=== PATIENT | female | born 1970 | race Caucasian/White ===

== ENCOUNTER → 2016-10-09 | Outpatient (CLI) | payer OTHER ==
--- NOTE | 2016-10-09 21:08 | MR ---
EXAMINATION TYPE: MR lumbar spine wo/w con DATE OF EXAM: 10/09/2016 7:33 PM COMPARISON: NONE HISTORY: Lower back pain Contrast: 15 mL of MultiHance TECHNIQUE: T1 and T2 axial and sagittal, postcontrast T1 sagittal and axial images of the lumbar spi ne are submitted. FINDINGS: There is no abnormal signal seen within the visualized spinal cord or paraspinal soft tissu es. At T12-L1 there is no disc herniation or canal stenosis. No foraminal encroachment. At L1-2 there is no disc herniation or canal stenosis. No foraminal encroachment. No evidence of dege nerative disc disease. At L2-3 there is no disc herniation or canal stenosis. No foraminal encroachment. Mild hypertrophic c hange of the facets. At L3-4 there is no disc herniation or canal stenosis. No foraminal encroachment. Mild degenerative d isc disease and moderate facet arthropathy. At L4-5 there is mild degenerative disc disease and moderate facet arthropathy. No evidence of disc h erniation or canal stenosis. Mild bilateral foraminal encroachment. At L5-S1 there is right paracentral broad-based disc protrusion or small herniation with mild effacem ent of the thecal sac. No definite nerve root contact. Moderate facet arthropathy and [id number] e right-sided foraminal encroachment. IMPRESSION: 1. Broad-based right paracentral and lateral disc protrusion or small herniation L5-S1 with no nerve root contact. Mild to moderate right-sided foraminal encroachment. 2. Multilevel facet arthropathy and degenerative disc disease. 3. No abnormal signal or enhancement within the visualized spinal cord.
== END | disposition home or self-care (01) ==
LOC: RADMRIMAIN 17:19
PROVIDERS: ATTEND Psychiatry & Neurology Neurology
DX: M51.36 Other intervertebral disc degeneration, lumbar region (principal); M46.96 Unspecified inflammatory spondylopathy, lumbar region; Z87.898 Personal history of other specified conditions
CPT/HCPCS: 72158; A9577

== ENCOUNTER 2017-04-06 13:35 | Inpatient (IN) | payer OTHER ==
[2017-04-06] MEDS ORDERED: SODIUM CHLORIDE 0.9% 1,000 ML IV STA (15:45)
[2017-04-06] MEDS ORDERED: IPRATROPIUM-ALBUTEROL 3 ML NEB INHALATION STA ×2 (15:45→16:31)
[2017-04-06] MEDS ORDERED: methylPREDNISolone SOD SUCCI 125 MG/2 ML VIAL IV STA (15:45)
--- NOTE | 2017-04-06 15:57 | XR ---
EXAMINATION TYPE: XR chest 2V DATE OF EXAM: 04/06/2017 COMPARISON: December 04, 2015 HISTORY: Shortness of breath TECHNIQUE: Frontal and lateral views of the chest are obtained. FINDINGS: There is no focal air space opacity, pleural effusion, or pneumothorax seen. The cardiac silhouette size is within normal limits. The osseous structures are intact. IMPRESSION: No acute cardiopulmonary process.
--- NOTE | 2017-04-06 16:14 | ED ---
General Adult HPI <Jose Raul Hart - Last Filed: 04/06/17 17:20> - General Source: patient, RN notes reviewed Mode of arrival: ambulatory Limitations: no limitations <Janie Henry - Last Filed: 04/06/17 17:22> - General Chief complaint: Upper Respiratory Infection Stated complaint: SOB Time Seen by Provider: 04/06/17 15:31 - History of Present Illness Initial comments: 46 yo female presents to the ER with cc of shortness of breath. Patient has a history of asthma and bronchitis. Patient had shortness of breath past 3 weeks over the past few days worse and worse. Patient states she's used her breathing machine at home she has used steroids and antibiotics with no improvement. States she was concerned because she just becomes very the eye and he is short of breath so she thought that she should be seen. Patient denies any recent fever, chills, chest pain, back pain, abdominal pain, nausea vomiting, numbness or tingling, dysuria or hematuria, constipation or diarrhea, headaches or visual changes, or any other current symptoms. (Janie Henry) - Related Data Home Medications Medication Instructions Recorded Confirmed Albuterol Sulfate [Ventolin HFA] 2 puff INHALATION RT-Q6H PRN 12/20/15 04/06/17 ALPRAZolam [Xanax] 0.25 mg PO DAILY PRN 04/06/17 04/06/17 Albuterol Nebulized [Ventolin 2.5 mg INHALATION RT-Q6H PRN 04/06/17 04/06/17 Nebulized] Gabapentin [Neurontin] 300 mg PO TID 04/06/17 04/06/17 HYDROcodone/APAP 7.5-325MG [[place] 1 tab PO TID PRN 04/06/17 04/06/17 7.5-325] Allergies Allergy/AdvReac Type Severity Reaction Status Date / Time No Known Allergies Allergy Verified 04/06/17 15:28 Review of Systems ROS Other: All systems not noted in ROS Statement are negative. <Jose Raul Hart - Last Filed: 04/06/17 17:20> ROS Other: All systems not noted in ROS Statement are negative. <Janie Henry - Last Filed: 04/06/17 17:22> ROS Statement: Those systems with pertinent positive or pertinent negative responses have been documented in the HPI. Past Medical History Past Medical History: Asthma Additional Past Medical History / Comment(s): back pain, DDD, lt arm tumor History of Any Multi-Drug Resistant Organisms: None Reported Past Surgical History: Section Past Psychological History: No Psychological Hx Reported Smoking Status: Former smoker Past Alcohol Use History: None Reported Past Drug Use History: Marijuana <Janie Henry - Last Filed: 04/06/17 17:22> General Exam <Jose Raul Hart - Last Filed: 04/06/17 17:20> Limitations: no limitations <Janie Henry - Last Filed: 04/06/17 17:22> - General Exam Comments Initial Comments: General: The patient is awake and alert, in no distress, and does not appear acutely ill. Eye: Pupils are equal, round and reactive to light, extra-ocular movements are intact; there is normal conjunctiva bilaterally. No signs of icterus. Ears, nose, mouth and throat: There are moist mucous membranes and no oral lesions. Neck: The neck is supple, there is no tenderness. Cardiovascular: There is a regular rate and rhythm. No murmur, rub or gallop is appreciated. Respiratory: Lungs are clear to auscultation, respirations are non-labored, breath sounds are equal. Diffuse inspiratory and expiratory wheezes, no stridor , rales, or rhonchi. Gastrointestinal: Soft, non-distended, non-tender abdomen without masses or organomegaly noted. There is no rebound or guarding present. No CVA tenderness. Bowel sounds are unremarkable. Back: There is no tenderness to palpation in the midline. There is no obvious deformity. No rashes noted. Musculoskeletal: Normal ROM, no tenderness, There is no pedal edema. There is no calf tenderness or swelling. Sensation intact. Pulses equal bilaterally 2+. Neurological: CN II-XII intact, There are no obvious motor or sensory deficits. Coordination appears grossly intact. Speech is normal. Skin: Skin is warm and dry and no rashes or lesions are noted. Psychiatric: Cooperative, appropriate mood & affect, normal judgment. (Janie Henry) Medical Decision Making - Lab Data Result diagrams: 04/06/17 16:21 04/06/17 16:21 <Jose Raul Hart - Last Filed: 04/06/17 17:20> - Lab Data Result diagrams: 04/06/17 16:21 04/06/17 16:21 - Radiology Data Radiology results: report reviewed, image reviewed <Janie Hnery - Last Filed: 04/06/17 17:22> - Medical Decision Making Medical decision-making. The patient states that she was treated for 13 days of steroids and erythromycin which ended 3 days ago. Last night while at work she reports she could hardly breathe. She was wheezing. At home she has a flap dressed. Emergency room she received 2 updrafts back to back and IV steroids and still slight wheezing. Though she states she is feeling better. Chest x-ray is done reviewed radiologist does not show pneumonia. White count normal. We auscultation at this time finds the patient still with some coarse breath sounds. I discussed the case Dr. Smith on-call for Dr. House. Patient be admitted to Dr. House. Dr. Hart (Jose Raul Hart) 46-year-old female presents with asthma exacerbation. Patient states that she' s been on steroids antibiotics and breathing treatments at home and her symptoms do not seem to be improving. At this time the patient's symptoms continued not to be improving after breathing treatment still have tightness in the chest. This with the patient due to failed outpatient treatment. We will start her on steroids breathing treatment. Patient is in agreement with this plan all questions have been answered. (Janie Henry) - Lab Data Lab Results 04/06/17 04/06/17 Range/Units 16:21 16:21 WBC 6.0 (3.8-10.6) k/uL RBC 4.50 (3.80-5.40) m/uL Hgb 14.7 (11.4-16.0) gm/dL Hct 41.2 (34.0-46.0) % MCV 91.5 (80.0-100.0) fL MCH 32.8 (25.0-35.0) pg MCHC 35.8 (31.0-37.0) g/dL RDW 12.6 (11.5-15.5) % Plt Count 187 (150-450) k/uL Neutrophils % 64 % Lymphocytes % 25 % Monocytes % 5 % Eosinophils % 3 % Basophils % 1 % Neutrophils # 3.8 (1.3-7.7) k/uL Lymphocytes # 1.5 (1.0-4.8) k/uL Monocytes # 0.3 (0-1.0) k/uL Eosinophils # 0.2 (0-0.7) k/uL Basophils # 0.1 (0-0.2) k/uL Sodium 137 (137-145) mmol/L Potassium 4.4 (3.5-5.1) mmol/L Chloride 109 H (98-107) mmol/L Carbon Dioxide 23 (22-30) mmol/L Anion Gap 5 mmol/L BUN 11 (7-17) mg/dL Creatinine 0.90 (0.52-1.04) mg/dL Est GFR (MDRD) Af Amer >60 (>60 ml/min/1.73 sqM) Est GFR (MDRD) Non-Af >60 (>60 ml/min/1.73 sqM) Glucose 120 H (74-99) mg/dL Calcium 9.3 (8.4-10.2) mg/dL Total Bilirubin 0.4 (0.2-1.3) mg/dL AST 23 (14-36) U/L ALT 36 (9-52) U/L Alkaline Phosphatase 102 (38-126) U/L Total Protein 6.2 L (6.3-8.2) g/dL Albumin 3.8 (3.5-5.0) g/dL Disposition <Jose Raul Hart - Last Filed: 04/06/17 17:20> Time of Disposition: 17:22 Decision Date: 04/06/17 Decision Time: 17:16 <Janie Henry - Last Filed: 04/06/17 17:22> Clinical Impression: Asthma exacerbation, Failure of outpatient treatment Disposition: ADMITTED IP TO THIS [facility] Condition: Stable Referrals: Albert House MD [Primary Care Provider] - 1-2 days
[2017-04-06 16:28] LABS: Basophils # (A) 0.1 k/uL (0-0.2); Basophils % (A) 1 %; CH 31.6; CHCM 34.7; Eosinophils # (A) 0.2 k/uL (0-0.7); Eosinophils % (A) 3 %; HCT 41.2 % (34.0-46.0); HDW 2.56; HGB 14.7 gm/dL (11.4-16.0); Luc # (Auto) 0.14; Luc % (Auto) 2; Lymphocytes # (A) 1.5 k/uL (1.0-4.8); Lymphocytes % (A) 25 %; MCH 32.8 pg (25.0-35.0); MCHC 35.8 g/dL (31.0-37.0); MCV 91.5 fL (80.0-100.0); Mean Platelet Volume 8.1; Monocytes # (A) 0.3 k/uL (0-1.0); Monocytes % (A) 5 %; Neutrophils # (A) 3.8 k/uL (1.3-7.7); Neutrophils % (A) 64 %; RDW 12.6 % (11.5-15.5); WBC (Perox) 6.12
[2017-04-06 16:38] LABS: ALT 36 U/L (9-52); AST 23 U/L (14-36); Alkaline Phosphatase 102 U/L (38-126); Anion Gap 5 mmol/L; Blood Urea Nitrogen 11 mg/dL (7-17); Calcium 9.3 mg/dL (8.4-10.2); Carbon Dioxide 23 mmol/L (22-30); Chloride 109 mmol/L (98-107); Glucose 120 mg/dL (74-99); Non-African American GFR(MDRD) >60 (>60 ml/min/1.73 sqM); Potassium 4.4 mmol/L (3.5-5.1); Sodium 137 mmol/L (137-145); Total Bilirubin 0.4 mg/dL (0.2-1.3); Total Protein 6.2 g/dL (6.3-8.2)
[2017-04-06] MEDS ORDERED: ALPRAZolam 0.25 MG TAB PO PRN (17:22)
[2017-04-06] MEDS: IPRATROPIUM-ALBUTEROL 3 ML NEB INHALATION SCH (19:22)
[2017-04-06] MEDS: LEVOFLOXACIN 500 MG TAB PO SCH (19:26)
[2017-04-06] MEDS: SODIUM CHLORIDE 0.9% 1,000 ML IV SCH (19:26)
[2017-04-06 20:01] VITALS: BMI 26.1
[2017-04-06] MEDS: HYDROcodone/APAP 7.5-325MG 1 EACH TAB PO PRN (20:06)
[2017-04-06] MEDS: GABAPENTIN 300 MG CAP PO SCH (23:09)
[2017-04-06] MEDS: methylPREDNISolone SOD SUCCI 125 MG/2 ML VIAL IV SCH (23:09)
[2017-04-06] MEDS: MONTELUKAST 10 MG TAB PO SCH (23:09)
--- NOTE | 2017-04-07 05:18 | HP ---
HISTORY AND PHYSICAL CHIEF COMPLAINT: Shortness of breath. HISTORY OF PRESENT ILLNESS: This 46-year-old female presented to the emergency room with complaints of shortness of breath. She has been on oral steroids, antibiotic on outpatient by her primary doctor, Dr. House. The patient presents with symptoms are not improving. The patient has had no fever or chills. She has some cough, remains dry with no sputum production. She does have a history of bronchial asthma since childhood. She does have a history of allergies. The patient has quit smoking in August. However, she still is in an environment of smoke. 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 The patient smoked 1-1/2 packs for over 20 years. Alcohol occasional. The patient denies any other symptoms of chest pain, fever, or chills. PAST MEDICAL HISTORY: Significant for bronchial asthma and probable COPD. No history of any liver disease, kidney disease, ulcers, TB, hepatitis. No history of any rheumatic fever, myocardial infarction, CVA. No history of any hypertension or malignancy. PAST SURGICAL HISTORY: Only significant for C-sections. PERSONAL HISTORY: Ex-smoker. Alcohol social. Patient does do marijuana. The patient is single. Has a son living with her. FAMILY MEDICAL HISTORY: Father at the age of 18. He had black lung disease. Mother at the age of 32. She had smoke inhalation in a fire. No siblings. Patient has 2 sons, one son 24 history of asthma, allergies. Another son 14 in good health. MEDICATIONS: Medications at home include: 1. [place] 7.5/325. 2. Neurontin 300 t.i.d. 3. Ativan. 4. Updrafts. 5. Ventolin MDI. 6. Xanax 0.25 p.r.n. 7. Flovent. REVIEW OF SYSTEMS: NEURO: Does have some headaches. No dizziness. No double vision, blurry vision. No symptoms of TIA, syncope, seizures. PSYCH: Some anxiety. CARDIAC: No chest pain, angina, palpitation. RESPIRATORY: Shortness of breath, cough. No hemoptysis. No chest pain. GI: No nausea, vomiting, abdominal pain. Did have diarrhea until yesterday, none since. : No symptoms of dysuria, hematuria, urgency, frequency. Has not had any periods for about 4 years now. EXTREMITIES: Denies pain, edema. CONSTITUTIONAL: No fever, chills. HEMATOLOGICAL: No anemia or bleeding disorder. ENDOCRINE: No history of diabetes mellitus, hypothyroidism. SKIN: No rashes. ENT: Adequate hearing, smell, taste. Denies any sore throat. EYES: Adequate vision. PHYSICAL EXAMINATION: Pleasant young 46 at present not in significant distress. The patient's vital signs reveals temperature 98.3, pulse 93, respirations 16, blood pressure 143/70, pulse ox 93% on room air. HEENT: Normocephalic. Neck is supple. Oral cavity is moist. Neck reveals no JVD, carotid bruit, or thyromegaly. CHEST EXAMINATION: Normal percussion note, symmetrical, bilateral expansion. Lung hinojosa reveal generalized decreased air flow. Bilateral rhonchi and some expiratory wheezing bilateral. CARDIAC: Normal S1, S2 with no gallops, murmurs. ABDOMEN: Soft. No palpable masses. Bowel sounds normal. No organomegaly. No abdominal bruits. Bowel sounds active. Extremities reveal no edema. Good pulses both upper and lower extremities. NEUROLOGICALLY: Awake, alert, oriented x3 with well coordinated movements. LABORATORY ASSESSMENT: CBC is normal. Electrolytes are normal. BUN and creatinine normal. Glucose 120 random. Liver functions normal. Albumin 3.8. Chest x-ray reveals. no acute cardiopulmonary process. ASSESSMENT: 1. Acute bronchial asthma with exacerbation. 2. History of chronic back pain. PLAN: The patient at present is admitted to the hospital for IV steroids and oxygen updrafts, hydration. Patient probably will be able to go home within 24 to 48 hours. Patient's condition discussed with the patient. Prognosis is guarded. The patient will be seen by Dr. Albert House upon his return tomorrow. Patient's condition discussed with the patient. Plan of care discussed with the patient. Answered all questions. MMODL / IJN: [id number] /
[2017-04-07] MEDS: SODIUM CHLORIDE 0.9% 1,000 ML IV SCH ×3 (05:46→18:20)
[2017-04-07] MEDS: methylPREDNISolone SOD SUCCI 125 MG/2 ML VIAL IV SCH ×4 (05:46→23:42)
[2017-04-07] MEDS: HYDROcodone/APAP 7.5-325MG 1 EACH TAB PO PRN ×3 (05:47→22:41)
[2017-04-07] MEDS: IPRATROPIUM-ALBUTEROL 3 ML NEB INHALATION SCH ×4 (07:24→19:55)
[2017-04-07] MEDS: GABAPENTIN 300 MG CAP PO SCH ×3 (08:30→21:41)
[2017-04-07] MEDS ORDERED: ALBUTEROL NEBULIZED 2.5 MG/3 ML INHALATION PRN (10:05)
[2017-04-07] MEDS: ALPRAZolam 0.25 MG TAB PO PRN ×2 (15:06→22:41)
--- NOTE | 2017-04-07 15:34 | PN ---
PROGRESS NOTE DATE OF SERVICE: 04/07/2017 This is a 46-year-old white female who is known to have chronic obstructive pulmonary disease and she used to be heavy smoker and she was having severe cough, wheezing, and shortness of breath and was started on oral antibiotics as an outpatient and after she was started on prednisone, but she had been getting more and more dyspneic and she also had some cough and she was brought to the emergency room. In the ER, she was found to be in acute respiratory distress with a severe cough, and severe wheezing and the patient was admitted to the hospital for further evaluation and treatment. Patient was started on IV Solu-Medrol, IV antibiotics, and updraft treatments and the patient currently is getting slightly better, but still extremely wheezy and short of breath. She has also chronic low back pain and she is currently on pain medications. Her vital signs are otherwise stable. Otherwise she is very dyspneic and wheezy and she is alert and oriented. Will continue current medications and; however, will also get a consultation from briquette operator. Dr. Edgar Ruiz has been consulted. MMODL / IJN: [id number] /
[2017-04-07] MEDS: HEPARIN SODIUM,PORCINE 5,000 UNIT/ML 1 ML VIAL SQ SCH ×2 (16:57→23:43)
[2017-04-07 17:58] LABS: Glucose,Whole Blood 148 mg/dL (75-99)
[2017-04-07] MEDS: LEVOFLOXACIN 500 MG TAB PO SCH (18:18)
[2017-04-07] MEDS: BUDESONIDE 0.5 MG/2 ML NEBU INHALATION SCH (19:53)
[2017-04-07 20:15] LABS: Glucose,Whole Blood 206 mg/dL (75-99)
--- NOTE | 2017-04-07 20:46 | CONS ---
CONSULTATION Elyse Murrieta is a 46-year-old female, who presented to the ED at [facility] with increasing shortness of breath for about 3-4 weeks. She had been treated with steroids as an outpatient and did not improve completely and came into the ER for further evaluation. She has a known history of asthma for several years and has been exposed to secondhand smoke for the last 3 months. She also moved into a dwelling where there is a dog and she suspects that she might be allergic to the dog. The patient's insurance company also stopped coverage of her inhaled steroid in the form of Flovent and she has been without inhaled steroid. PAST MEDICAL HISTORY: Is positive for degenerative disc disease. Back pain. Left arm tumor, history of asthma, history of anxiety. FAMILY HISTORY: Negative for COPD or asthma. SOCIAL HISTORY: Patient used to smoke cigarettes, quit smoking about 6 months ago. She is exposed to secondhand smoke. She does not drink alcohol excessively. She uses marijuana occasionally. She is exposed to a dog that is new as she moved into a new dwelling in December of 2016. MEDICATIONS: Prior to admission were: 1. Hydrocodone with acetaminophen. 2. Neurontin. 3. Ventolin. 4. Nebulized Ventolin metered dose inhaler. 5. Xanax. REVIEW OF SYSTEMS: Is noncontributory. PHYSICAL EXAMINATION: Respiratory rate is 18, pulse rate of 94, afebrile. Blood pressure 126/72, O2 saturation on room is 93%. HEENT: Unremarkable. Chest reveals decreased breath sounds with prolonged expiration with expiratory wheeze. Cardiovascular system reveals an S1, S2. No S3, no S4. No murmurs. ABDOMEN: Soft. There is no pedal edema. X-RAY: Chest x-ray shows no acute cardiopulmonary process. IMPRESSION: Severe asthma with acute exacerbation. At this point in time from a pulmonary standpoint, would keep her on IV and aerosolized steroids, receptor antagonists. Check peak flows. Check an allergy profile. The patient is on Levaquin and we will continue for atypical organisms for the likelihood of an infections. Keep on GI and DVT prophylaxis. Depending on how she does, we should make further changes with her care. She was counseled regarding this condition and this approach and has a fair understanding of recommendations. MMODL / IJN: [id number] /
[2017-04-07] MEDS: MONTELUKAST 10 MG TAB PO SCH (21:41)
[2017-04-08] MEDS: methylPREDNISolone SOD SUCCI 125 MG/2 ML VIAL IV SCH (05:40)
[2017-04-08] MEDS: HYDROcodone/APAP 7.5-325MG 1 EACH TAB PO PRN ×2 (06:37→15:39)
[2017-04-08] MEDS: ALPRAZolam 0.25 MG TAB PO PRN ×2 (06:37→15:39)
[2017-04-08 07:10] LABS: Glucose,Whole Blood 168 mg/dL (75-99)
[2017-04-08] MEDS: PANTOPRAZOLE 40 MG TABLET PO SCH (07:45)
[2017-04-08] MEDS: HEPARIN SODIUM,PORCINE 5,000 UNIT/ML 1 ML VIAL SQ SCH ×2 (07:45→15:40)
[2017-04-08] MEDS: GABAPENTIN 300 MG CAP PO SCH ×3 (07:46→22:03)
[2017-04-08] MEDS: BUDESONIDE 0.5 MG/2 ML NEBU INHALATION SCH ×2 (08:32→19:26)
[2017-04-08] MEDS: IPRATROPIUM-ALBUTEROL 3 ML NEB INHALATION SCH ×4 (08:32→19:26)
[2017-04-08 09:37] LABS: Hemoglobin A1C 5.6 % (4.2-6.1)
--- NOTE | 2017-04-08 09:54 | PN ---
PROGRESS NOTE DATE OF SERVICE: 04/08/2017 She has been hemodynamically stable. She is less short of breath and is feeling better overall. PHYSICAL EXAMINATION: Her vitals are stable. She is afebrile. Her chest reveals expiratory wheeze on forced expiration. Cardiovascular system reveals an S1, S2. Abdomen is soft. There is no pedal edema. IMPRESSION: Severe asthma with acute exacerbation. Start to check peak flows. Once she gets the peak flow meter, switch her to oral steroids, increase her activity level depending on continue GI and DVT prophylaxis. Continue leukin receptor antagonist. Depending on how she does, we shall make further changes to her care. MMODL / IJN: [id number] /
[2017-04-08] MEDS: predniSONE 20 MG TAB PO SCH (11:23)
[2017-04-08 11:38] LABS: Glucose,Whole Blood 145 mg/dL (75-99)
--- NOTE | 2017-04-08 13:51 | PN ---
PROGRESS NOTE DATE OF SERVICE: 04/08/2017 This 46-year-old white female who is known to have COPD and asthma and she was admitted this time to the hospital with severe exacerbation of her asthma and also acute exacerbation of COPD. She was started on IV antibiotics and IV Solu-Medrol and updraft treatments and patient was also seen by the Dr. Edgar Ruiz in consultation. The patient is feeling slightly better today and Dr. Edgar Ruiz has switched her to oral prednisone and the patient continues to have the updraft treatments and also she is on Levaquin. Her vital signs are otherwise stable. Oral intake is adequate. Heart is in sinus rhythm. Lungs still reveal some bilateral scattered rhonchi and expiratory wheeze. We will continue current medications and if she continues to improve, she may be possibly discharged home tomorrow. The diagnosis and prognosis and therapeutic plans were discussed in detail with the patient today and also she has been advised to completely stop smoking. MMODL / IJN: [id number] /
[2017-04-08] MEDS: SODIUM CHLORIDE 0.9% 1,000 ML IV SCH ×2 (15:11→22:04)
[2017-04-08 17:09] LABS: Glucose,Whole Blood 136 mg/dL (75-99)
[2017-04-08] MEDS: LEVOFLOXACIN 500 MG TAB PO SCH (17:12)
[2017-04-08 20:34] LABS: Glucose,Whole Blood 174 mg/dL (75-99)
[2017-04-08] MEDS ORDERED: ALPRAZolam 0.5 MG TAB PO STA (21:49)
[2017-04-08] MEDS: MONTELUKAST 10 MG TAB PO SCH (22:03)
[2017-04-09] MEDS: HYDROcodone/APAP 7.5-325MG 1 EACH TAB PO PRN ×4 (00:18→23:20)
[2017-04-09] MEDS: HEPARIN SODIUM,PORCINE 5,000 UNIT/ML 1 ML VIAL SQ SCH ×4 (00:21→23:20)
[2017-04-09] MEDS: SODIUM CHLORIDE 0.9% 1,000 ML IV SCH (06:06)
[2017-04-09 07:38] LABS: Glucose,Whole Blood 78 mg/dL (75-99)
[2017-04-09] MEDS: IPRATROPIUM-ALBUTEROL 3 ML NEB INHALATION SCH ×4 (08:16→20:20)
[2017-04-09] MEDS: BUDESONIDE 0.5 MG/2 ML NEBU INHALATION SCH ×2 (08:16→20:20)
[2017-04-09] MEDS: GABAPENTIN 300 MG CAP PO SCH ×3 (09:18→21:39)
[2017-04-09] MEDS: PANTOPRAZOLE 40 MG TABLET PO SCH (09:18)
[2017-04-09] MEDS: predniSONE 20 MG TAB PO SCH (09:19)
[2017-04-09] MEDS: ALPRAZolam 0.25 MG TAB PO PRN ×3 (09:20→23:20)
[2017-04-09 11:46] LABS: Glucose,Whole Blood 125 mg/dL (75-99)
[2017-04-09] MEDS ORDERED: methylPREDNISolone SOD SUCCI 125 MG/2 ML VIAL IV SCH (12:45)
[2017-04-09 15:31] LABS: Alternaria alternata IgE <0.35 kU/L (<0.35); Asperg. fumagatus IgE <0.35 kU/L (<0.35); Asperg. fumagatus IgE Class CLASS 0; Birch(Com.Silvr) IgE Class CLASS 0; Cat Epith & Dander IgE <0.35 kU/L (<0.35); Cat Epith & Dander IgE Class CLASS 0; Clad herbarum IgE <0.35 kU/L (<0.35); Clad herbarum IgE Class CLASS 0; Common Ragweed IgE Class CLASS 0; Dermato. Pteronyssinus Class CLASS 0; Dermato. Pteronyssinus IgE <0.35 kU/L (<0.35); Dermato. farinae IgE <0.35 kU/L (<0.35); Dermato. farinae IgE Class CLASS 0; IgE (Allergen) 27.3 IU/mL (<114.0); Maple (Box Elder) IgE <0.35 kU/L (<0.35); Maple (Box Elder) IgE Class CLASS 0; Mountain Cedar IgE <0.35 kU/L (<0.35); Mountain Cedar IgE Class CLASS 0; Mouse Urine IgE Class CLASS 0; Mouse Urine Proteins,IgE <0.35 kU/L (<0.35); Mulberry IgE Class CLASS 0; Nettle IgE <0.35 kU/L (<0.35); Nettle IgE Class CLASS 0; Oak IgE <0.35 kU/L (<0.35); Penicillium notatum IgE Class CLASS 0; Rough Marshelder IgE <0.35 kU/L (<0.35); Rough Marshelder IgE Class CLASS 0; Timothy Grass IgE <0.35 kU/L (<0.35); Timothy Grass IgE Class CLASS 0; White Ash IgE Class CLASS 0
[2017-04-09 17:26] LABS: Glucose,Whole Blood 253 mg/dL (75-99)
--- NOTE | 2017-04-09 17:32 | PN ---
PROGRESS NOTE DATE OF SERVICE: 04/09/2017 This 46-year-old white female was known to have chronic obstructive pulmonary disease. She was admitted to the hospital with acute exacerbation of the COPD and acute bronchitis and severe asthma. The patient was started on IV antibiotics, updraft treatments and IV Solu-Medrol. The patient was seen by Dr. Kaden Ruiz in consultation. Patient's breathing difficulty improved. The IV Solu-Medrol was discontinued yesterday and she was placed on prednisone. But today patient is extremely short of breath and wheezy with wheezing and anxiety. We will place her back on IV Solu-Medrol and continue the IV antibiotics. Overall prognosis is guarded. Dr. Kaden Ruiz is also following the patient. The diagnosis, prognosis and therapeutic plans were discussed in detail with the patient today. JHONNYL / SEBASTIANN: [id number] /
--- NOTE | 2017-04-09 18:20 | PN ---
PROGRESS NOTE DATE OF SERVICE: 04/09/2017 HISTORY OF PRESENT ILLNESS: Patient is a 46-year-old female who came in with problems with increased difficulty with breathing that had been going on for quite some time. She had been treated with steroids on an outpatient basis. She had no improvement. She does have exposure to secondhand smoke and had been having some problems where she lives and works; she has moved at least 2 or 3 times due to problems with mold and animal dander. She is seen. She still has considerable wheezing and dry cough. She does admit that she has been smoking now 1 pack of cigarettes daily, and nicotine patch will be added. She states that she did have considerable problems last night with anxiety, which could possibly be related to not smoking. It also could be related to her steroids. She denies any nausea or vomiting. She denies any chest pain at this time. She was admitted with severe asthma with acute exacerbation. PHYSICAL EXAMINATION: Vital signs show temperature of 98.3, heart rate 83, respiratory rate 16, blood pressure 122/76, oxygen saturation on room air 94%. Accu-Chek today was 125. GENERAL: She is a 46-year-old female. Appears comfortable at this time. She does have Xanax as needed. HEENT: Head is atraumatic, normocephalic. Pupils are equal, reactive. Mucous membranes are moist. NECK: Supple. Trachea is midline. Lung sounds with scattered wheezes heard throughout. CARDIOVASCULAR: S1 and S2 are heard; regular. ABDOMEN: Soft. Bowel sounds are heard. EXTREMITIES: No edema. NEUROLOGIC: She is awake, alert. IMPRESSION: 1. Acute exacerbation of severe asthma. 2. Nicotine dependence. 3. History of chronic back pain. PLAN: We will continue patient with her present medications. Continue with steroids as ordered. Will order a nicotine patch. She has Xanax as needed. Continue with GI and DVT prophylaxis. Continue with pulmonary hygiene. We will continue to follow patient with you and make further changes as necessary. MMODL / IJN: [id number] /
[2017-04-09] MEDS: LEVOFLOXACIN 500 MG TAB PO SCH (19:13)
[2017-04-09] MEDS: methylPREDNISolone SOD SUCCI 125 MG/2 ML VIAL IV SCH (19:53)
[2017-04-09] MEDS: MONTELUKAST 10 MG TAB PO SCH (21:39)
[2017-04-09] MEDS: NICOTINE 21MG/24HR PATCH TRANSDERM SCH (21:40)
[2017-04-09] MEDS: PROMETHAZINE 6.25MG/5ML 147.5 MG/118 ML BOTTLE PO PRN (21:40)
[2017-04-10 00:42] LABS: Glucose,Whole Blood 122 mg/dL (75-99)
[2017-04-10] MEDS: methylPREDNISolone SOD SUCCI 125 MG/2 ML VIAL IV SCH ×3 (00:43→14:08)
[2017-04-10 07:39] LABS: Glucose,Whole Blood 139 mg/dL (75-99)
[2017-04-10 07:55] VITALS: BP 142/95; RESP 18; TEMP 97.3
[2017-04-10] MEDS: PANTOPRAZOLE 40 MG TABLET PO SCH (08:09)
[2017-04-10] MEDS: NICOTINE 21MG/24HR PATCH TRANSDERM SCH (08:09)
[2017-04-10] MEDS: ALPRAZolam 0.25 MG TAB PO PRN (08:09)
[2017-04-10] MEDS: HEPARIN SODIUM,PORCINE 5,000 UNIT/ML 1 ML VIAL SQ SCH (08:09)
[2017-04-10] MEDS: GABAPENTIN 300 MG CAP PO SCH (08:09)
[2017-04-10] MEDS: HYDROcodone/APAP 7.5-325MG 1 EACH TAB PO PRN (08:09)
[2017-04-10] MEDS: PROMETHAZINE 6.25MG/5ML 147.5 MG/118 ML BOTTLE PO PRN ×2 (08:13→14:10)
[2017-04-10] MEDS: BUDESONIDE 0.5 MG/2 ML NEBU INHALATION SCH (08:45)
[2017-04-10] MEDS: IPRATROPIUM-ALBUTEROL 3 ML NEB INHALATION SCH ×2 (08:45→12:22)
[2017-04-10 11:10] LABS: Glucose,Whole Blood 168 mg/dL (75-99)
[2017-04-10 12:32] VITALS: PULSE 94
[2017-04-10] MEDS ORDERED: predniSONE 20 MG TAB PO SCH (14:15)
--- NOTE | 2017-04-10 17:18 | PN ---
PROGRESS NOTE DATE OF SERVICE: 04/10/2017 The patient is a 46-year-old female who follows with Dr. House. She was admitted with an acute exacerbation of asthma. She is seen sitting up in bed, talking with a visitor. The patient is quite anxious about being discharged home. 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 Patient is hemodynamically stable, afebrile, feeling better with improved shortness of breath. The patient is in no acute distress. PHYSICAL EXAMINATION: VITAL SIGNS: Temperature is 97.3, heart rate 70, respiratory rate 18, blood pressure 142/95, oxygen saturation 95% on room air. HEENT: Normocephalic, atraumatic. Neck is supple. Trachea is midline. LUNGS: Fair air entry with end-expiratory wheeze. HEART: S1 and S2 are heard. Not tachycardic. Abdomen is soft. Bowel sounds are heard. EXTREMITIES: No edema. NEUROLOGIC: Patient is awake and alert. LABS/IMAGING: No new labs to review. No new imaging to review. IMPRESSION: 1. Acute exacerbation of severe asthma. 2. Nicotine dependence. 3. History of chronic back pain. PLAN: Continue current medications, which have been reviewed, with bronchodilators and aerosolized steroids. Will give patient one dose of prednisone 60 mg now and from a pulmonary standpoint, patient could discharge home on oral prednisone, bronchodilators and aerosolized steroids. She should follow up in the pulmonary office for further workup and more weaning instructions on Friday or Friday of next week. All of this has been reviewed with the patient, with understanding verbalized. Prescriptions were provided for a nebulizer and prednisone, DuoNeb and Pulmicort. MMODL / IJN: [id number] /
--- NOTE | 2017-04-11 12:34 | DS ---
DISCHARGE SUMMARY DATE OF ADMISSION: 04/06/2017 DATE OF DISCHARGE: 04/10/2017 DISCHARGE DIAGNOSES: 1. Chronic obstructive pulmonary disease with acute exacerbation. 2. Acute on chronic asthma. 3. Acute bronchitis. 4. Chronic low back pain. 5. Degenerative arthritis, multiple joints. 6. Nicotine dependence. This is a 46-year-old white female who has a longstanding history of COPD and chronic asthma and she was brought to the emergency room because of increasing shortness of breath and difficulty in breathing and with severe cough. The patient was evaluated in the emergency room and she was admitted to the hospital for further evaluation and treatment. For detail of the physical examination at the time of admission, please refer to the history and physical. HOSPITAL COURSE: The patient was admitted to the hospital and was started on IV antibiotics, updraft treatments and IV Solu-Medrol and she was also given Phenergan cough syrup to control the cough. The patient was seen by Dr. Edgar Ruiz in consultation and he followed the patient while she was in the hospital and with the IV Solu-Medrol and updraft treatments, the patient's symptoms improved. The patient was then discharged home on 04/10/2017 and she was advised to continue on home on the above treatment. She was given a prescription for Pulmicort and also DuoNeb inhalation therapy and Phenergan cough syrup 10 mL q.6 hours p.r.n., prednisone tapering dose. She will also continue on with Xanax 0.25 mg p.o. p.r.n. and also she was given nicotine patch for quit smoking completely. She will be seen in my office for followup in a week's time. MMODL / IJN: [id number] /
[2017-04-14 00:09] LABS: Alternaria Alternata IgG < 2.0 mcg/mL (< 13.6); Cladosporium herbarium IgG 20.8 mcg/mL (< 14.7); Phoma ssp. IgG < 2.0 mcg/mL (< 6.6); Saccaharomospora viridis Not detected (Not detected); Saccaharopoly. rectivirgula Not detected (Not detected)
== END 2017-04-10 14:55 | disposition home or self-care (01) | DRG 202 ==
LOC: EC 13:35 → 5MS5E 17:21
PROVIDERS: ADMIT Internal Medicine; ATTEND Internal Medicine
DX: J45.901 Unspecified asthma with (acute) exacerbation (principal); J44.0 Chronic obstructive pulmonary disease with (acute) lower respiratory infection; J44.1 Chronic obstructive pulmonary disease with (acute) exacerbation; J20.9 Acute bronchitis, unspecified; M19.91 Primary osteoarthritis, unspecified site; F12.90 Cannabis use, unspecified, uncomplicated; G89.29 Other chronic pain; M54.5 Low back pain; F41.9 Anxiety disorder, unspecified; Z79.899 Other long term (current) drug therapy; Z77.22 Contact with and (suspected) exposure to environmental tobacco smoke (acute) (chronic); Z87.891 Personal history of nicotine dependence; Z82.5 Family history of asthma and other chronic lower respiratory diseases
CPT/HCPCS: 36415; 71020; 80053; 82103; 82104; 82785; 83036; 85025; 86001; 86003; 86606; 86609; 87040; 94640; 94760; 96361; 96374; 99284

== ENCOUNTER 2017-12-11 11:29 | Emergency (ER) | payer OTHER ==
[2017-12-11 11:39] VITALS: TEMP 97.8
[2017-12-11] MEDS ORDERED: methylPREDNISolone SOD SUCCI 125 MG/2 ML VIAL IV STA (11:48)
[2017-12-11] MEDS ORDERED: IPRATROPIUM-ALBUTEROL 3 ML NEB INHALATION STA (11:48)
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
[2017-12-11 12:22] LABS: Basophils % (A) 0 %; Eosinophils # (A) 0.1 k/uL (0-0.7); Eosinophils % (A) 1 %; HCT 46.9 % (34.0-46.0); HGB 15.7 gm/dL (11.4-16.0); Lymphocytes % (A) 8 %; MCH 30.4 pg (25.0-35.0); MCHC 33.4 g/dL (31.0-37.0); MCV 91.1 fL (80.0-100.0); Mean Platelet Volume 7.7; Monocytes # (A) 0.3 k/uL (0-1.0); Monocytes % (A) 3 %; Neutrophils % (A) 88 %; Platelet Count 226 k/uL (150-450); RBC 5.15 m/uL (3.80-5.40); RDW 12.5 % (11.5-15.5); WBC 12.5 k/uL (3.8-10.6)
--- NOTE | 2017-12-11 12:22 | XR ---
EXAMINATION TYPE: XR chest 2V DATE OF EXAM: 12/11/2017 COMPARISON: Prior chest x-ray 06/22/2017 12/20/2015 HISTORY: Difficulty breathing TECHNIQUE: Frontal and lateral views of the chest are obtained on 3 images. FINDINGS: There is no focal air space opacity, pleural effusion, or pneumothorax seen. The cardiac silhouette size is within normal limits. The osseous structures are stable, chondroid lesion [place] in the proximal left humerus as on prior exam. Prominent lung volume may be indicative of underly ing COPD. IMPRESSION: No acute cardiopulmonary process.
[2017-12-11 12:37] LABS: Albumin 4.4 g/dL (3.5-5.0); Calcium 9.8 mg/dL (8.4-10.2); Magnesium 1.7 mg/dL (1.6-2.3); Potassium 3.5 mmol/L (3.5-5.1); Total Bilirubin 0.3 mg/dL (0.2-1.3); Total Protein 6.6 g/dL (6.3-8.2)
[2017-12-11] MEDS ORDERED: SODIUM CHLORIDE 0.9% 1,000 ML IV ONE (12:42)
[2017-12-11 13:15] VITALS: BP 133/63; PULSE 85; RESP 16
== END 2017-12-11 13:38 | disposition home or self-care (01) ==
LOC: EC 11:29
DX: J44.1 Chronic obstructive pulmonary disease with (acute) exacerbation (principal); J06.9 Acute upper respiratory infection, unspecified; E87.2 Acidosis; F17.200 Nicotine dependence, unspecified, uncomplicated; Z79.52 Long term (current) use of systemic steroids; Z83.6 Family history of other diseases of the respiratory system
CPT/HCPCS: 36415; 94640; 80053; 83605; 83735; 85025; 87040; 71046; 99285; 96374; 96361; J2930

== ENCOUNTER → 2018-06-05 | Outpatient (CLI) | payer OTHER ==
--- NOTE | 2018-06-05 10:07 | XR ---
EXAMINATION TYPE: XR humerus LT DATE OF EXAM: 06/05/2018 CLINICAL HISTORY: Neoplasm of bone. TECHNIQUE: Two views of the left humerus are obtained. COMPARISON: Left shoulder x-ray December 20, 2015 FINDINGS: There is no acute fracture or dislocation seen in the left humerus. The proximal humerus redemonstrates ring and arc calcification centered proximal humeral metaphysis with proximal diaphyse al extension not significantly changed in appearance from prior study. No suspicious cortical destruc tion or adjacent soft tissue mass is seen. Visualized portion of shoulder and elbow joints is within normal limits. The overlying soft tissue appears within normal limits. IMPRESSION: Stable appearing nonspecific left proximal humeral chondroid lesion.
== END | disposition home or self-care (01) ==
LOC: RADXRMAIN 09:40
PROVIDERS: ATTEND Internal Medicine Hematology & Oncology
DX: D48.0 Neoplasm of uncertain behavior of bone and articular cartilage (principal); J45.998 Other asthma

== ENCOUNTER 2018-09-27 08:38 | Emergency (ER) | payer OTHER ==
[2018-09-27] MEDS ORDERED: KETOROLAC 30 MG/ML 1 ML VIAL IVP STA ×2 (09:00→11:19)
[2018-09-27] MEDS ORDERED: ONDANSETRON 4 MG/2 ML VIAL IVP STA (09:00)
[2018-09-27] MEDS ORDERED: SODIUM CHLORIDE 0.9% 500 ML 500 ML IV STA (09:00)
[2018-09-27] MEDS ORDERED: SODIUM CHLORIDE 0.9% 1,000 ML IV STA (09:00)
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
[2018-09-27 09:39] LABS: Basophils # (A) 0.1 k/uL (0-0.2); Basophils % (A) 0 %; Eosinophils # (A) 0.1 k/uL (0-0.7); Eosinophils % (A) 0 %; HCT 40.4 % (34.0-46.0); HGB 13.6 gm/dL (11.4-16.0); Lymphocytes # (A) 1.5 k/uL (1.0-4.8); Lymphocytes % (A) 8 %; MCH 30.5 pg (25.0-35.0); MCHC 33.5 g/dL (31.0-37.0); Monocytes % (A) 5 %; Neutrophils # (A) 16.3 k/uL (1.3-7.7); Neutrophils % (A) 85 %; Platelet Count 208 k/uL (150-450); RBC 4.44 m/uL (3.80-5.40); RDW 12.2 % (11.5-15.5); WBC 19.1 k/uL (3.8-10.6)
[2018-09-27 09:41] LABS: ALT 23 U/L (9-52); AST 11 U/L (14-36); Albumin 3.7 g/dL (3.5-5.0); Alkaline Phosphatase 93 U/L (38-126); Amylase 33 U/L (30-110); Anion Gap 8 mmol/L; Blood Urea Nitrogen 9 mg/dL (7-17); Calcium 9.3 mg/dL (8.4-10.2); Carbon Dioxide 24 mmol/L (22-30); Chloride 104 mmol/L (98-107); Glucose 136 mg/dL (74-99); Lipase 53 U/L (23-300); Sodium 136 mmol/L (137-145); Total Bilirubin 0.6 mg/dL (0.2-1.3); Total Protein 6.1 g/dL (6.3-8.2)
--- NOTE | 2018-09-27 09:43 | XR ---
Abdomen HISTORY: Pain Frontal view the abdomen on 2 images Lung bases are clear. There is no evident bowel obstruction or pneumoperitoneum. There are air-fluid levels without bowel distention. Calcifications in the pelvis may be vascular. IMPRESSION: Correlate for possible ileus or enteritis, follow-up as indicated.
--- NOTE | 2018-09-27 09:43 | XR ---
EXAMINATION TYPE: XR chest 2V DATE OF EXAM: 09/27/2018 COMPARISON: Prior chest 12/11/2017 HISTORY: Fever, congestion, abdominal pain TECHNIQUE: Frontal and lateral views of the chest are obtained. FINDINGS: There is no focal air space opacity, pleural effusion, or pneumothorax seen. The cardiac silhouette size is within normal limits. The osseous structures are intact. Chondroid lesion in the proximal left humerus shows a similar appearance. Prominent lung volume may be indicative of underly ing COPD. IMPRESSION: No acute cardiopulmonary process.
--- NOTE | 2018-09-27 12:05 | US ---
EXAMINATION TYPE: US gallbladder DATE OF EXAM: 09/27/2018 COMPARISON: NONE CLINICAL HISTORY: Pain. Pt states RUQ pain EXAM MEASUREMENTS: Liver Length: 16.8 cm Gallbladder Wall: 0.3 cm CBD: 0.4 cm Right Kidney: 10.3 x 3.6 x 4.7 cm Pancreas: Appeared wnl Liver: wnl Gallbladder: wnl Evidence for sonographic Uribe's sign: No CBD: wnl Right Kidney: wnl There is no ascites. IMPRESSION: Normal gallbladder ultrasound
[2018-09-27 12:09] VITALS: BP 126/72; PULSE 108; RESP 18; TEMP 99
== END 2018-09-27 13:24 | disposition home or self-care (01) ==
LOC: EC 08:38
DX: K58.9 Irritable bowel syndrome, unspecified (principal); D72.829 Elevated white blood cell count, unspecified; E86.0 Dehydration; J45.909 Unspecified asthma, uncomplicated; Z87.891 Personal history of nicotine dependence; Z79.899 Other long term (current) drug therapy
CPT/HCPCS: 36415; 80053; 82150; 83690; 85025; 87040; 87502; 71046; 74018; 76705; 99284; 96374; 96375; 96376; J2405; J1885

== ENCOUNTER → 2019-09-14 | Outpatient (CLI) | payer OTHER ==
[2019-09-14 12:54] VITALS: PULSE 89; RESP 18
[2019-09-14 12:57] VITALS: BP 137/87
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
== END | disposition home or self-care (01) ==
LOC: PNWHC3 12:28
PROVIDERS: ATTEND Anesthesiology
DX: G89.29 Other chronic pain (principal); M47.812 Spondylosis without myelopathy or radiculopathy, cervical region; J45.909 Unspecified asthma, uncomplicated; M54.5 Low back pain; M25.552 Pain in left hip; M79.602 Pain in left arm; M79.601 Pain in right arm; Z87.891 Personal history of nicotine dependence; Z79.899 Other long term (current) drug therapy; Z79.891 Long term (current) use of opiate analgesic
CPT/HCPCS: 99211

== ENCOUNTER → 2020-03-21 | Outpatient (CLI) | payer OTHER ==
--- NOTE | 2020-03-21 08:50 | CT ---
EXAMINATION TYPE: CT chest wo con DATE OF EXAM: 03/21/2020 COMPARISON: Radiographs 09/27/2018 HISTORY: 49-year-old female asthma and dyspnea, shortness of breath. TECHNIQUE: Contiguous axial scanning of the chest without IV contrast. Coronal and sagittal reconstru ctions performed. CT DLP: 243 mGycm Automated exposure control for dose reduction was used. FINDINGS: Heart normal size of pericardial effusion. Aorta normal caliber with conventional arch vessel branching anatomy. Scattered small mediastinal lymph nodes. No thoracic lymphadenopathy by CT size criteria. Tiny 4 mm nodule left midlung near the course of a subsegmental bronchus, axial image 43 can be reass essed in 6 months. 4 mm and smaller nodularity along the major fissure at the left midlung likely intrafissural lymph no cameron. No consolidation or pleural effusion. Some mild central bronchial wall thickening. Visualized upper abdomen shows no gross abnormality by noncontrast CT. Bones: Redemonstrated chondroid lesion within the proximal left humerus. This was present back on 11/18 as well. Only partially visualized on the present exam. Moderate degenerative disc disease mid to lower thoracic spine. No osseous destructive process. IMPRESSION: 1. A 4 mm left midlung nodule, possible endobronchial nodule in the left midlung. 6 month follow-up C T recommended to reassess. 2. Mild central bronchial wall thickening may be seen with asthma or bronchitis. 3. Chondroid lesion partially visualized proximal left humerus was present back on the 12/04/2015 ches t radiograph suggesting a benign enchondroma. If new bone pain ever develops in this area, further wo rkup would then become indicated.
== END | disposition home or self-care (01) ==
LOC: RADCTMAIN 07:03
PROVIDERS: ATTEND Internal Medicine Pulmonary Disease
DX: R91.1 Solitary pulmonary nodule (principal); J98.09 Other diseases of bronchus, not elsewhere classified; J45.909 Unspecified asthma, uncomplicated
CPT/HCPCS: 71250

== ENCOUNTER 2020-11-02 00:52 | Emergency (ER) | payer OTHER ==
[2020-11-02 00:57] VITALS: BP 168/78; PULSE 100; TEMP 97.5
[2020-11-02 01:02] VITALS: RESP 20
[2020-11-02] MEDS ORDERED: BACITRACIN OINT 1 EACH PACKET TOPICAL ONE (01:18)
[2020-11-02] MEDS ORDERED: LIDOCAINE 1% INJ 10MG/ML (20 ML MDV) SQ ONE (01:18)
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
== END 2020-11-02 02:35 | disposition home or self-care (01) ==
LOC: EC 00:52
DX: S61.012A Laceration without foreign body of left thumb without damage to nail, initial encounter (principal); F17.200 Nicotine dependence, unspecified, uncomplicated; J45.909 Unspecified asthma, uncomplicated; F41.9 Anxiety disorder, unspecified; W25.XXXA Contact with sharp glass, initial encounter
CPT/HCPCS: 99282; 12001; J2001

== ENCOUNTER → 2021-05-30 | Outpatient (CLI) | payer OTHER ==
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
== END | disposition home or self-care (01) ==
LOC: RADMRIMAIN 06:01
PROVIDERS: ATTEND Physical Medicine & Rehabilitation
DX: M47.816 Spondylosis without myelopathy or radiculopathy, lumbar region (principal); M51.36 Other intervertebral disc degeneration, lumbar region; M50.223 Other cervical disc displacement at C6-C7 level; M47.812 Spondylosis without myelopathy or radiculopathy, cervical region
CPT/HCPCS: 72141; 72148

== ENCOUNTER 2022-03-02 04:21 | Emergency (ER) | payer OTHER ==
[2022-03-02 05:13] VITALS: BP 156/84; RESP 20; TEMP 98.2
[2022-03-02 05:53] LABS: Urn Cannabinoid Scrn Detected (NotDetected)
[2022-03-02 05:54] LABS: Amphetamine Screen,Urine Not Detected (NotDetected); Barbiturate Screen,Urine Not Detected (NotDetected); Benzodiazepines Screen,Urine Not Detected (NotDetected); Cocaine Screen,Urine Detected (NotDetected); Methadone Screen, Urine Not Detected (NotDetected); Opiate Screen,Urine Detected (NotDetected); Oxycodone Screen, Urine Not Detected (NotDetected); Phencyclidine Screen,Urine Not Detected (NotDetected); Tricyclic Antidepressant,Urine Detected (NotDetected)
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
[2022-03-02] MEDS ORDERED: ONDANSETRON ODT 4 MG TAB PO STA (07:24)
[2022-03-02] MEDS ORDERED: IPRATROPIUM 0.5 MG/2.5 ML NEBU INHALATION ONE (13:30)
[2022-03-02] MEDS ORDERED: MONTELUKAST 10 MG TAB PO ONE (13:30)
[2022-03-02] MEDS ORDERED: ALBUTEROL HFA INHALER INHALATION ONE (13:30)
[2022-03-02 16:05] VITALS: PULSE 96
== END 2022-03-02 16:56 | disposition home or self-care (01) ==
LOC: EC 04:21
DX: R45.851 Suicidal ideations (principal); F43.20 Adjustment disorder, unspecified; J45.909 Unspecified asthma, uncomplicated; Z87.891 Personal history of nicotine dependence; Z79.51 Long term (current) use of inhaled steroids; Z20.822 Contact with and (suspected) exposure to COVID-19
CPT/HCPCS: 80306; 82075; 87635; 94640; 99284

== ENCOUNTER 2024-04-10 07:06 | Emergency (ER) | payer OTHER ==
[2024-04-10 07:15] VITALS: TEMP 97.6
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
[2024-04-10] MEDS: ONDANSETRON 4 MG/2 ML VIAL IVP STA (07:32)
[2024-04-10] MEDS: HYDROmorphone 1 MG/ML 1 ML SYRINGE IVP STA ×2 (07:33→08:53)
[2024-04-10 07:51] LABS: Basophils # (A) 0.1 k/uL (0-0.2); Basophils % (A) 0 %; Eosinophils # (A) 0.2 k/uL (0-0.7); Eosinophils % (A) 2 %; HCT 43.5 % (34.0-46.0); HGB 14.8 gm/dL (11.4-16.0); Lymphocytes # (A) 1.8 k/uL (1.0-4.8); Lymphocytes % (A) 16 %; MCHC 34.1 g/dL (31.0-37.0); MCV 94.1 fL (80.0-100.0); Mean Platelet Volume 9.1; Monocytes # (A) 0.5 k/uL (0-1.0); Monocytes % (A) 4 %; Neutrophils % (A) 77 %; Platelet Count 222 k/uL (150-450); RBC 4.62 m/uL (3.80-5.40); RDW 12.3 % (11.5-15.5); WBC 11.6 k/uL (3.8-10.6)
[2024-04-10 08:01] LABS: INR 0.9 (<1.2); Partial Thromboplastin Time 23.6 sec (22.0-30.0); Prothrombin Time 10.3 sec (10.0-12.5)
[2024-04-10 08:03] LABS: ALT 20 U/L (4-34); AST 22 U/L (14-36); African American GFR (CKD) >90 (>60 ml/min/1.73 sqM); Alkaline Phosphatase 114 U/L (38-126); Anion Gap 4 mmol/L; Blood Urea Nitrogen 14 mg/dL (7-17); Calcium 9.8 mg/dL (8.4-10.2); Carbon Dioxide 26 mmol/L (22-30); Chloride 108 mmol/L (98-107); Glucose 129 mg/dL (74-99); Non-African American GFR(CKD) >90 (>60 ml/min/1.73 sqM); Potassium 4.2 mmol/L (3.5-5.1); Sodium 138 mmol/L (137-145); Total Bilirubin 0.6 mg/dL (0.2-1.3); Total Protein 6.1 g/dL (6.3-8.2)
--- NOTE | 2024-04-10 08:18 | XR ---
EXAMINATION TYPE: XR chest 1V portable DATE OF EXAM: 04/10/2024 COMPARISON: 09/27/2018 INDICATION: Trauma TECHNIQUE: Single frontal view of the chest is obtained. FINDINGS: The heart size is normal. The pulmonary vasculature is normal. The lungs are clear. 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 No acute fractures are identified. Mediastin um appears normal. No pneumothorax identified. No displaced rib fractures evident. IMPRESSION: 1. No acute pulmonary process. 2. No acute posttraumatic changes. [facility], , 04/10/2024 8:15 AM
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
[2024-04-10 09:09] VITALS: BP 170/90; PULSE 60; RESP 16
== END 2024-04-10 09:09 | disposition home or self-care (01) ==
LOC: EC 07:06
CPT/HCPCS: 36415; 71045; 74177; 80053; 85025; 85610; 85730; 99283